=== PATIENT | female | born 1955 | race African-American/Black ===

== ENCOUNTER 2022-04-15 20:25 | Emergency (ER) | payer OTHER ==
[2022-04-15 22:23] LABS: #Monocytes 0.4 10x3/uL (0.0-1.1); #Neutrophils 6.6 10x3/uL (1.5-8.4); %Basophils 0.3 % (0.0-2.0); %Eosinophils 0.3 % (0.0-6.0); %Lymphocytes 6.2 % (18.0-47.0); %Monocytes 4.8 % (0.0-10.0); %Neutrophils 87.9 % (40.0-75.0); Hemoglobin 12.8 g/dL (12.0-15.5); Mean Corpuscular HGB CONC 31.1 g/dL (32.0-36.0); Mean Corpuscular Hemoglobin 27.9 pg (27.0-33.0); Mean Corpuscular Volume 89.7 fl (81.6-98.3); Mean Platelet Volume 10.8 fl (7.4-10.4); Platelet Count 196 10x3/uL (150-450); RBC Distribution Width 14.6 % (11.5-14.5); Red Blood Cell (RBC) Count 4.58 10x6/uL (3.90-5.03); White Blood Cell (WBC) Count 7.6 10x3/uL (3.5-10.5)
[2022-04-15 22:36] LABS: ALT (SGPT) 15 U/L (8-55); AST (SGOT) 15 U/L (5-34); Albumin 3.8 g/dL (3.4-4.8); Alkaline Phosphatase 97 U/L (40-110); Anion Gap 18 mmol/L (10-20); BUN (Urea Nitrogen) 24 mg/dL (9.8-20.1); Bilirubin, Total 0.2 mg/dL (0.2-1.2); Calc. Creatinine Clearance 0 mL/min (70-130); Calcium 9.6 mg/dL (7.8-10.44); Carbon Dioxide 21 mmol/L (23-31); Chloride 102 mmol/L (98-107); Estimated GFR 32; Globulin 4.7 g/dL (2.4-3.5); Glucose 72 mg/dL (80-115); Potassium 4.1 mmol/L (3.5-5.1); Protein, Total 8.5 g/dL (5.8-8.1); Sodium 137 mmol/L (136-145)
[2022-04-15 23:53] LABS: Bilirubin Neg (Negative); Blood, Urine Negative (Negative); Clarity Slightly Cloudy (Clear); Glucose, Urine (Dipstick) Normal (Negative); Ketone, Urine Negative (Negative); Leukocyte 100 (Negative); Nitrite Negative (Negative); Protein, Urine (Dipstick) 100 mg/dl (Neg-Trace); Urobilinogen Normal mg/dL (Less than 2)
[2022-04-15] MEDS ORDERED: Morphine 4 MG/ML VIAL ONE (23:53)
[2022-04-15] MEDS ORDERED: Ondansetron PF 4 MG/2 ML Vial ONE (23:53)
[2022-04-16] LABS: Bacteria/HPF Rare-Few HPF (None Seen); Transitional Epithelial None Seen HPF (None Seen); WBC/HPF 0-3 HPF (0-3)
[2022-04-16 00:06] LABS: RBC/HPF 0-3 HPF (0-3)
[2022-04-16] MEDS ORDERED: Cephalexin 250 MG CAP ONE (04:42)
[2022-04-16] MEDS ORDERED: Acetaminophen 500 MG TAB ONE (07:43)
== END 2022-04-16 07:21 | disposition home or self-care (01) ==
LOC: CSHERS 20:25
DX: E86.0 Dehydration (principal); E78.5 Hyperlipidemia, unspecified; I10 Essential (primary) hypertension; E11.9 Type 2 diabetes mellitus without complications; Z79.01 Long term (current) use of anticoagulants
CPT/HCPCS: 36415; 70450; 80053; 81003; 81015; 83605; 83880; 84484; 85025; 93005; 96361; 96374; 96375; J2270; J2405

== ENCOUNTER 2023-03-13 18:31 | Emergency (ER) | payer OTHER ==
[2023-03-13] MEDS ORDERED: Acetaminophen 500 MG TAB ONE (19:24)
[2023-03-13 20:19] LABS: #Monocytes 0.8 10x3/uL (0.0-1.1); #Neutrophils 11.3 10x3/uL (1.5-8.4); %Basophils 0.3 % (0.0-2.0); %Lymphocytes 3.9 % (18.0-47.0); %Monocytes 6.4 % (0.0-10.0); %Neutrophils 89.1 % (40.0-75.0); Hematocrit 30.8 % (34.9-44.5); Hemoglobin 8.3 g/dL (12.0-15.5); Mean Corpuscular HGB CONC 26.9 g/dL (32.0-36.0); Mean Corpuscular Hemoglobin 19.2 pg (27.0-33.0); Mean Corpuscular Volume 71.3 fl (81.6-98.3); Mean Platelet Volume 8.7 fl (7.4-10.4); Platelet Count 297 10x3/uL (150-450); RBC Distribution Width 25.4 % (11.5-14.5); Red Blood Cell (RBC) Count 4.32 10x6/uL (3.90-5.03); White Blood Cell (WBC) Count 12.7 10x3/uL (3.5-10.5)
[2023-03-13 20:25] LABS: ALT (SGPT) 16 U/L (8-55); AST (SGOT) 13 U/L (5-34); Albumin 3.6 g/dL (3.4-4.8); Alkaline Phosphatase 83 U/L (40-110); Anion Gap 15 mmol/L (10-20); BUN (Urea Nitrogen) 12 mg/dL (9.8-20.1); Bilirubin, Total 0.3 mg/dL (0.2-1.2); Calc. Creatinine Clearance 0 mL/min (70-130); Calcium 9.4 mg/dL (7.8-10.44); Carbon Dioxide 23 mmol/L (23-31); Chloride 100 mmol/L (98-107); Estimated GFR 64; Globulin 4.5 g/dL (2.4-3.5); Glucose 99 mg/dL (80-115); Potassium 3.9 mmol/L (3.5-5.1); Protein, Total 8.1 g/dL (5.8-8.1); Sodium 134 mmol/L (136-145)
[2023-03-13] MEDS ORDERED: HYDROcodone/Acetaminophen 5/325 mg Tablet ONE (21:28)
[2023-03-13 22:02] LABS: Anisocytosis MODERATE=16-30 cells (100X) (0-5/hpf); Microcytosis MODERATE=15-30 cells (100X) (0-5/hpf); Poikilocytosis SLIGHT = 6-15 cells (100X) (0-5/hpf)
[2023-03-13 22:03] LABS: Hypochromia MODERATE=16-30 cells (100X) (0-5/hpf); Macrocytosis SLIGHT = 6-15 cells (100X) (0-5/hpf); Ovalocytes SLIGHT = 2-5 cells (100X) (0-1/hpf); Polychromasia SLIGHT = 2-3 cells (100X) (0-2/hpf)
[2023-03-13 22:04] LABS: Platelet Adequacy Comment Appears Adequate
[2023-03-14] LABS: Uric Acid 6.5 mg/dL (2.6-6.0)
== END 2023-03-13 22:11 | disposition home or self-care (01) ==
LOC: CSHERS 18:31
DX: M79.671 Pain in right foot (principal); R10.9 Unspecified abdominal pain; D64.9 Anemia, unspecified; D72.829 Elevated white blood cell count, unspecified; E11.9 Type 2 diabetes mellitus without complications; I10 Essential (primary) hypertension; E78.5 Hyperlipidemia, unspecified
CPT/HCPCS: 80053; 84550; 85025

== ENCOUNTER 2023-04-05 14:58 | Emergency (ER) | payer OTHER ==
[2023-04-05 16:47] LABS: #Eosinphils 0.1 10x3/uL (0.0-0.5); #Monocytes 0.4 10x3/uL (0.0-1.1); #Neutrophils 6.7 10x3/uL (1.5-8.4); %Basophils 0.3 % (0.0-2.0); %Eosinophils 0.8 % (0.0-6.0); %Monocytes 5.1 % (0.0-10.0); %Neutrophils 87.4 % (40.0-75.0); Hematocrit 35.1 % (34.9-44.5); Mean Corpuscular HGB CONC 25.6 g/dL (32.0-36.0); Mean Corpuscular Hemoglobin 18.8 pg (27.0-33.0); Mean Corpuscular Volume 73.4 fl (81.6-98.3); Mean Platelet Volume 9.3 fl (7.4-10.4); Platelet Count 437 10x3/uL (150-450); RBC Distribution Width 26.5 % (11.5-14.5); Red Blood Cell (RBC) Count 4.78 10x6/uL (3.90-5.03); White Blood Cell (WBC) Count 7.7 10x3/uL (3.5-10.5)
[2023-04-05 16:54] LABS: ALT (SGPT) 10 U/L (8-55); AST (SGOT) 12 U/L (5-34); Albumin 3.8 g/dL (3.4-4.8); Alkaline Phosphatase 102 U/L (40-110); Anion Gap 14 mmol/L (10-20); BUN (Urea Nitrogen) 12 mg/dL (9.8-20.1); Bilirubin, Total 0.2 mg/dL (0.2-1.2); Calc. Creatinine Clearance 0 mL/min (70-130); Calcium 9.4 mg/dL (7.8-10.44); Carbon Dioxide 27 mmol/L (23-31); Chloride 101 mmol/L (98-107); Estimated GFR 56; Globulin 4.7 g/dL (2.4-3.5); Glucose 86 mg/dL (80-115); Potassium 4.4 mmol/L (3.5-5.1); Protein, Total 8.5 g/dL (5.8-8.1); Sodium 138 mmol/L (136-145)
[2023-04-05 17:18] LABS: Anisocytosis MARKED = >30 cells (100X) (0-5/hpf)
[2023-04-05 17:19] LABS: PTT 27.4 sec (22.0-33.0); Prothrombin Time 10.4 sec (9.5-12.1)
[2023-04-05 17:19] LABS: Microcytosis MARKED = >30 cells (100X) (0-5/hpf)
[2023-04-05 17:20] LABS: Hypochromia SLIGHT = 6-15 cells (100X) (0-5/hpf)
[2023-04-05 17:22] LABS: Spherocytes SLIGHT = 1-5 cells (100X) (None Seen)
[2023-04-05 17:24] LABS: Stomatocytes SLIGHT = 2-5 cells (100X) (0-1/hpf)
[2023-04-05] MEDS ORDERED: CEFAZOLIN 2 GM VIAL ONE (18:32)
[2023-04-05] MEDS ORDERED: VANCOMYCIN 2 GRAM/400 ML BAG 2 GM in Premix 1 BAG IVPB SCH (19:00)
== END 2023-04-05 20:36 | disposition short-term general hospital (02) ==
LOC: CSHERS 14:58
DX: I96 Gangrene, not elsewhere classified (principal); M86.8X7 Other osteomyelitis, ankle and foot; I10 Essential (primary) hypertension; E11.9 Type 2 diabetes mellitus without complications
CPT/HCPCS: 75635; 80053; 85025; 85610; 85730; 93005; 96365; 96367; J3370